=== PATIENT | female | born 1995 | race Caucasian/White ===

== ENCOUNTER 2024-09-19 07:37 | Inpatient (IN) ==
[2024-09-19] MEDS ORDERED: OXYTOCIN 30 UNITS/NSS 30 UNITS/500 ML BAG IV PRN (08:15)
[2024-09-19] MEDS ORDERED: CALCIUM CARBONATE 500 MG CHEWABLE TAB PO PRN (08:15)
[2024-09-19] MEDS ORDERED: LIDOCAINE 1% LOCAL 20 ML VIAL INFIL PRN (08:15)
[2024-09-19 08:46] LABS: Hematocrit (blood only) 37.6 % (37.0-47.0); Hemoglobin 13.1 g/dl (12.0-16.0); Mean Corpuscular Hemoglobin 30.3 pg (25.0-34.0); Mean Corpuscular Hgb Conc 34.8 g/dL (32.0-36.0); Mean Platelet Volume 10.7 fL (9.4-12.4); Platelet Count 230 K/uL (130-400); RDW Coefficient of Variation 13.8 % (11.5-14.5); RDW Standard Deviation 43.8 fL (36.4-46.3); Red Blood Count 4.32 M/uL (4.20-5.40); White Blood Count 6.49 K/ul (4.8-10.8)
[2024-09-19] MEDS: LACTATED RINGER'S 1,000 ML IV PRN (09:07)
[2024-09-19] MEDS: OXYTOCIN 30 UNITS/NSS 30 UNITS/500 ML BAG IV PRN (09:20)
--- NOTE | 2024-09-19 09:28 | History & Physical Report ---
Date of Service September 19, 2024 Assessment & Plan (1) Encounter for induction of labor: (2) Obesity affecting , antepartum: (3) Need for rhogam due to Rh negative mother: (4) Marginal insertion of umbilical cord: (5) ELEN II (cervical intraepithelial neoplasia II): Plan Lluvia is a 28 y/o female currently at 39/3 WGA with an HENRY 09/23/24 as determined by Ultrasound who is here for induction due tp LGA. Her was complicated by obesity, Rh neg, and marginal cord insertion. Category 1 tracing; moderate FHT variability. - Induction of labor via henderson balloon followed by Pitocin as needed for progression of labor - Consider amniotomy to assist with progression of labor - Consult anesthesiology for epidural per pt request - Monitor labor progress Admission and Anticipated Discharge Date Admission Date: September 19, 2024 History of Present Illness Primary Care Provider: NO PCP Lluvia is a 28 y/o female currently at 39/3 WGA with an HENRY 09/23/24 as determined by Ultrasound who is here for induction due to protocol for BMI >40 pre-. Her was complicated by obesity, Rh neg, and marginal cord insertion. no contractions; regular movement; no fluid loss; no bloody show Had regular appointments with OB. Transferred to practice 12+ weeks. OB Labs: Blood Type O Negative 07/09/24 Antibody Screen NEGATIVE 07/09/24 Hgb 10.1 g/dl (12.0-16.0) L 07/09/24 Hct 30.1 % (37.0-47.0) L 07/09/24 Treponema pallidum Ab Negative (Negative) 07/09/24 Glucose 1 Hr 50 gm 84 mg/dl (70-130) 07/09/24 OB Optional Labs: No Data to Display Labs Reviewed: Initial OB Labs 02/01/24 Blood Type & RH O negative Antibody Screen negative HCT/HGB 38.5/13.1 Platelets 224 Hep C IgG 13yrs+ Old non-reactive Pap Test 12/2023 HGSIL, ELEN II Chlamydia not detected Gonorrhea not detected Rubella immune RPR non-reactive Urine Culture/Screen <30,000 mixed breann HBsAg non-reactive HIV non-reactive MCV 88.3 Ultrasound HgbA1c 5.4 Allergies Allergy/AdvReac Type Severity Reaction Status Date / Time No Known Allergies Allergy Verified 09/18/24 10:19 Home Medications Medication Instructions Recorded Confirmed Type ascorbic acid (vitamin C) 1 tab PO 1XD 03/14/24 09/19/24 History calcium carbonate [Calcium 500] 1 tab PO 1XD 03/14/24 09/19/24 History magnesium 400 mg PO 1XD 03/14/24 09/19/24 History 21-iron fu-folic acid 1 tab PO 1XD 03/14/24 09/19/24 History [ Complete] Unisom (doxylamine) 0.5 tabs PO QPM 09/19/24 09/19/24 History Patient History Medical History (Updated 09/19/24 @ 09:34 by Carrie Shelley DO) HGSIL (high grade squamous 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 High risk HPV infection Surgical History S/P wisdom tooth extraction History of colposcopy S/P loop electrosurgical excision procedure Family History Grandfather (Maternal) Heart disease Hypertension Grandmother (Maternal) Hypertension Mother Hypertension Family/Other Pancreatic cancer uncle Denies family history of Ovarian cancer Breast cancer Colorectal cancer Social History Smoking Status: Never smoker Second Hand Exposure: No; Do You Dip or Chew Tobacco: No; Hx Alcohol Use: No Hx Substance Use: No Preferred Language: Tristanian Communication Ability: Effective Technical Support Representative Required: No Beliefs That Will Affect Care: None marital status: marital status details: Evreardo Riggins (29) [phone] Current Living Situation: Spouse Current Living Situation Comment: - Everardo; norah - Najma current occupational status: employed 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 Denies breast pain. Denies dysuria. Denies headache or changes in vision. Physical Exam Physical Exam: General: Alert, oriented. No acute distress. Cardiac: Regular rate and rhythm, no murmurs/rubs/gallops. Respiratory: Clear to auscultation bilaterally a/p, no wheezes/rales/rhonchi. No increased work of breathing. Symmetrical chest rise. No respiratory distress. Abdomen: Gravid;Position: Vertex Pelvic: Dilation 2 cm; Effacement 50%; Station -[address] Fish Lower Extremities: No lower extremity edema or swelling. No deep calf pain. Alexander's negative bilaterally Results & Data Vital Signs (Past 12 Hours) Vital Signs Temp Pulse Resp BP O2 Del Method 09/19/24 07:59 36.6 C 85 18 130/75 Room Air 09/19/24 07:51 85 130/75 Code Status & VTE Plan VTE Prophylaxis Plan VTE Prophylaxis will be ordered: No Monitoring External Monitor External FHT and external uterine monitors used; Supervising Physician Co-Signing Physician Notes Resident Physician Supervision Note: I interviewed and examined the patient. Discussed with Dr. Shelley and agree with findings and plan as documented in the note. Any exceptions or clarifications are listed here: 28 yo G1 at 39 3/7wga presents for IOL for BMI >40. PNI as above. VSS wnl. 2/50/-2, EFW 7-8, fetus cat 1 and irreg ctx. 35cc henderson bulb placed, tolerated well. Will start pit. GBS neg, epidural prn Documented By: Tomasa Fish MD Resident Activity Tracking Resident Involvement: Resident Care Provided Care Provided: Adult Hospital Medicine
--- NOTE | 2024-09-19 13:27 | Anesthesiology Consultation ---
Date of Service September 19, 2024 Assessment & Plan (1) Encounter for pre-operative examination: Chart Review Chart Review: Acceptable Risk for Labor Epidural History Height/Weight Height: 5 ft 6 in Weight: 121.109 kg Allergies Allergy/AdvReac Type Severity Reaction Status Date / Time No Known Allergies Allergy Verified 09/18/24 10:19 Medications Home Medications Medication Instructions Recorded Confirmed Last Taken ascorbic acid (vitamin C) 1 tab PO 1XD 03/14/24 09/19/24 09/18/24 18:00 calcium carbonate [Calcium 500] 1 tab PO 1XD 03/14/24 09/19/24 09/18/24 18:00 magnesium 400 mg PO 1XD 03/14/24 09/19/24 09/18/24 18:00 21-iron fu-folic acid 1 tab PO 1XD 03/14/24 09/19/24 09/18/24 18:00 [ Complete] Unisom (doxylamine) 0.5 tabs PO QPM 09/19/24 09/19/24 09/18/24 21:00 Active Medications Generic Name Dose Route Start Last Admin Trade Name Freq PRN Reason Stop Dose Admin Lactated Ringer's 1,000 mls @ 125 mls/hr 09/19/24 08:15 09/19/24 12:50 Lr IV 09/20/24 08:14 999 mls/hr .Q8H PRN Infusion L&D Protocol Protocol Oxytocin 30 units in 500 mls @ 12 mls/hr 09/19/24 08:15 09/19/24 12:05 Pitocin 30 Units/Nss IV 09/21/24 08:14 0.72 units/hr .Q24H PRN 12 mls/hr Labor Induction/Augmentation Titration Protocol 0.72 UNITS/HR Past Medical History Medical History (Updated 09/19/24 @ 13:27 by Boy Mo MD) Obesity affecting , antepartum HGSIL (high grade squamous 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 High risk HPV infection Past Family History Family History Grandfather (Maternal) Heart disease Hypertension Grandmother (Maternal) Hypertension Mother Hypertension Family/Other Pancreatic cancer uncle Denies family history of Ovarian cancer Breast cancer Colorectal cancer Past Surgical History Surgical History S/P wisdom tooth extraction History of colposcopy S/P loop electrosurgical excision procedure Social History Smoking Status: Never smoker Do You Dip or Chew Tobacco: No Hx Alcohol Use: No Hx Substance Use: No substance use type: does not use Physical Exam Vital Signs Last Vital Signs Temp 36.8 C 09/19/24 11:15 Pulse 78 09/19/24 13:24 Resp 16 09/19/24 11:30 BP 114/62 09/19/24 11:26 Pulse Ox 99 09/19/24 13:24 O2 Del Method Room Air 09/19/24 07:59 Testing Laboratory Results 09/19/24 08:28 Blood Type O Negative 09/19/24 08:28 Antibody Screen NEGATIVE 09/19/24 08:28
[2024-09-19] MEDS ORDERED: ROPIVACAINE 0.5% PF 5 MG/ML 20 ML VIAL EPI PRN (13:56)
[2024-09-19] MEDS ORDERED: SODIUM CHLORIDE 0.9% PF INJ 10 ML VIAL EPI PRN (13:56)
[2024-09-19] MEDS ORDERED: LIDOCAINE 2% MPF LOCAL 5 ML VIAL EPI PRN (13:56)
[2024-09-19] MEDS ORDERED: ONDANSETRON INJ 2 MG/ML 2 ML VIAL IV PRN (13:56)
[2024-09-19] MEDS ORDERED: BUPIVACAINE 0.25% PF 30 ML VIAL EPI PRN (13:56)
[2024-09-19] MEDS ORDERED: NALOXONE HCL 1 MG in SODIUM CHLORIDE 0.9% 1,000 ML IV PRN (13:56)
[2024-09-19] MEDS ORDERED: NALOXONE HCL 0.4 MG/1 ML VIAL/CARP IV PRN (13:56)
[2024-09-19] MEDS ORDERED: fentaNYL citrate PF 100 MCG/2 ML VIAL EPI PRN (13:56)
[2024-09-19] MEDS ORDERED: ePHEDrine sulfate 50 MG/ML AMP IV PRN (13:56)
[2024-09-19] MEDS: BUPIVACAINE 0.25% PF 30 ML VIAL ONE (14:00)
[2024-09-19] MEDS: fentANYL 2 MCG/ML BUPIVacaine 0.125%-NSS 100ML BAG ONE (14:00)
[2024-09-19] MEDS: LIDOCAINE 2%/EPINEPHRINE 1:200,000 20 ML PF ONE (14:01)
[2024-09-19] MEDS: LIDOCAINE 2%/EPINEPHRINE 1:200,000 20 ML PF EPI STA (14:08)
[2024-09-19] MEDS: BUPIVACAINE 0.25% PF 30 ML VIAL EPI STA (14:08)
[2024-09-19] MEDS: SODIUM CHLORIDE 0.9% PF INJ 10 ML VIAL EPI STA (14:08)
[2024-09-19] MEDS: fentaNYL citrate PF 100 MCG/2 ML VIAL EPI STA (14:08)
[2024-09-19] MEDS: fentaNYL citrate PF 100 MCG/2 ML VIAL ONE (14:12)
--- NOTE | 2024-09-19 14:28 | Labor Progress Brief Note ---
Date of Service September 19, 2024 Subjective bulb out, comfortable w/ epidural Assessment & Plan (1) Encounter for induction of labor: (2) Marginal insertion of umbilical cord: Plan 28 yo G1 at 39 3/7 wga admitted for IOL VSS Fetus cat 1 Labor - pit at 14, now s/p arom. Continue induction GBS neg epidural in place Admission and Anticipated Discharge Date Admission Date: September 19, 2024 Physical Exam Genitourinary: Manual OB Exam: + cervical dilation 4 cm, + cervical effacement 70%, + station -2 and + amniotic fluid (arom clear) OB Exam Monitor Tracing: + external FHT monitor used, + external uterine monitor used (q4) and + category I (125/mod/+accel/decel) Results & Data Vital Signs (Past 12 Hours) Vital Signs Temp Pulse Resp BP Pulse Ox O2 Del Method 09/19/24 14:22 88 133/71 09/19/24 14:19 86 99 09/19/24 14:17 80 137/63 09/19/24 14:14 92 H 99 09/19/24 14:12 90 126/58 L 09/19/24 14:09 99 H 99 09/19/24 14:07 101 H 132/61 09/19/24 14:04 101 H 99 09/19/24 14:02 95 H 120/65 09/19/24 14:00 83 118/66 09/19/24 13:59 84 99 09/19/24 13:58 88 115/56 L 09/19/24 13:56 115 H 111/53 L 09/19/24 13:54 99 09/19/24 13:54 101 H 09/19/24 13:54 93 H 117/59 L 09/19/24 13:52 103 H 118/56 L 09/19/24 13:50 122 H 149/67 H 09/19/24 13:49 116 H 98 09/19/24 13:48 90 136/75 09/19/24 13:46 81 137/76 09/19/24 13:44 100 09/19/24 13:44 81 09/19/24 13:44 77 134/75 09/19/24 13:40 82 147/91 H 09/19/24 13:39 81 100 09/19/24 13:38 82 139/79 09/19/24 13:34 102 H 100 09/19/24 13:29 82 99 09/19/24 13:26 73 137/79 09/19/24 13:24 78 99 09/19/24 13:19 88 100 09/19/24 13:14 75 100 09/19/24 13:09 87 100 09/19/24 11:30 16 09/19/24 11:30 16 09/19/24 11:26 71 114/62 09/19/24 11:15 16 09/19/24 11:15 98.2 F 16 09/19/24 10:32 92 H 125/70 09/19/24 09:27 90 127/84 09/19/24 07:59 97.9 F 85 18 130/75 Room Air 09/19/24 07:51 85 130/75 Coding Level of Care Code None Diagnoses Encounter for induction of labor Z34.90 Marginal insertion of umbilical cord
[2024-09-19] MEDS ORDERED: Nursing to Pharmacy Communication SCH (17:15)
--- NOTE | 2024-09-19 17:17 | Labor Progress Brief Note ---
Date of Service September 19, 2024 Subjective cmofortable w/ epidural Assessment & Plan (1) Encounter for induction of labor: (2) Marginal insertion of umbilical cord: Plan 28 yo G1 at 39 3/7 wga admitted for IOL VSS Fetus cat 1 Labor - pit at 18, progress noted w/ descent. Will increase pit max to 24 [address] in place Admission and Anticipated Discharge Date Admission Date: September 19, 2024 Physical Exam Genitourinary: Manual OB Exam: + cervical dilation 4 cm, + cervical effacement 70% and + station -1 OB Exam Monitor Tracing: + external FHT monitor used, + external uterine monitor used (q3-5) and + category I (125/mod/+accel/decel) Results & Data Vital Signs (Past 12 Hours) Vital Signs Temp Pulse Resp BP Pulse Ox O2 Del Method 09/19/24 17:09 89 98 09/19/24 17:04 78 99 09/19/24 16:59 93 H 99 09/19/24 16:54 77 99 09/19/24 16:49 82 98 09/19/24 16:44 73 99 09/19/24 16:39 74 100 09/19/24 16:34 82 99 09/19/24 16:29 76 99 09/19/24 16:24 75 99 09/19/24 16:19 72 99 09/19/24 16:14 77 98 09/19/24 16:09 83 98 09/19/24 16:04 85 98 09/19/24 16:00 18 09/19/24 16:00 18 09/19/24 15:59 78 98 09/19/24 15:54 91 H 98 09/19/24 15:49 85 99 09/19/24 15:44 83 99 09/19/24 15:39 83 99 09/19/24 15:38 78 149/90 H 09/19/24 15:34 83 98 09/19/24 15:29 76 98 09/19/24 15:24 78 99 09/19/24 15:23 78 122/72 09/19/24 15:19 81 99 09/19/24 15:14 85 100 09/19/24 15:09 100 09/19/24 15:09 90 09/19/24 15:09 82 136/70 09/19/24 15:04 81 100 09/19/24 14:59 98 H 100 09/19/24 14:54 99 09/19/24 14:54 81 09/19/24 14:54 74 116/70 09/19/24 14:49 81 99 09/19/24 14:44 110 H 99 09/19/24 14:39 80 98 09/19/24 14:38 89 118/72 09/19/24 14:34 87 98 09/19/24 14:30 18 09/19/24 14:30 18 09/19/24 14:29 76 99 09/19/24 14:24 80 98 09/19/24 14:22 88 133/71 09/19/24 14:19 86 99 09/19/24 14:17 80 137/63 09/19/24 14:14 92 H 99 09/19/24 14:12 90 126/58 L 09/19/24 14:09 99 H 99 09/19/24 14:07 101 H 132/61 09/19/24 14:04 101 H 99 09/19/24 14:02 95 H 120/65 09/19/24 14:00 83 118/66 09/19/24 13:59 84 99 09/19/24 13:58 88 115/56 L 09/19/24 13:56 115 H 111/53 L 09/19/24 13:54 99 09/19/24 13:54 101 H 09/19/24 13:54 93 H 117/59 L 09/19/24 13:52 103 H 118/56 L 09/19/24 13:50 122 H 149/67 H 09/19/24 13:49 116 H 98 09/19/24 13:48 90 136/75 09/19/24 13:46 81 137/76 09/19/24 13:44 100 09/19/24 13:44 81 09/19/24 13:44 77 134/75 09/19/24 13:40 82 147/91 H 09/19/24 13:39 81 100 09/19/24 13:38 82 139/79 09/19/24 13:34 102 H 100 09/19/24 13:29 82 99 09/19/24 13:26 73 137/79 09/19/24 13:24 78 99 09/19/24 13:19 88 100 09/19/24 13:14 75 100 09/19/24 13:09 87 100 09/19/24 11:30 16 09/19/24 11:30 16 09/19/24 11:26 71 114/62 09/19/24 11:15 16 09/19/24 11:15 98.2 F 16 09/19/24 10:32 92 H 125/70 09/19/24 09:27 90 127/84 09/19/24 07:59 97.9 F 85 18 130/75 Room Air 09/19/24 07:51 85 130/75 Coding Level of Care Code None Diagnoses Encounter for induction of labor Z34.90 Marginal insertion of umbilical cord
[2024-09-19] MEDS: ePHEDrine sulfate 50 MG/ML AMP ONE (20:14)
[2024-09-19] MEDS: SODIUM CHLORIDE 0.9% PF INJ 10 ML VIAL ONE (20:15)
[2024-09-19] MEDS: fentANYL 2 MCG/ML BUPIVacaine 0.125%-NSS 100ML BAG EPI PRN (20:59)
--- NOTE | 2024-09-19 21:36 | Labor Progress Brief Note ---
Date of Service September 19, 2024 Subjective RN just checked, requesting internals Assessment & Plan (1) Encounter for induction of labor: (2) Marginal insertion of umbilical cord: Plan 28 yo G1 at 39 3/7 wga admitted for IOL VSS Fetus cat 1 Labor - pit at 22, progress noted. FSE/IUPC placed so can trace in different positions better. I can feel a little swelling of anterior cervix but progress is also noted so will try to reposition to see if will help. Discussed this w/ pt, aware GBS neg epidural in place Admission and Anticipated Discharge Date Admission Date: September 19, 2024 Physical Exam Genitourinary: Manual OB Exam: + cervical dilation 5 cm, + cervical effacement 70% and + station -1 and 0 OB Exam Monitor Tracing: + scalp electrode used, + intra-uterine pressure catheter used (placed q3-4) and + category I (135/mod/+accel/occ early decel) Results & Data Vital Signs (Past 12 Hours) Vital Signs Temp Pulse Resp BP Pulse Ox 09/19/24 21:29 86 98 09/19/24 21:24 83 100 09/19/24 21:19 78 100 09/19/24 21:14 77 98 09/19/24 21:09 79 99 09/19/24 21:04 89 100 09/19/24 20:59 85 100 09/19/24 20:54 84 99 09/19/24 20:49 84 99 09/19/24 20:44 84 98 09/19/24 20:40 85 141/64 H 09/19/24 20:39 83 99 09/19/24 20:34 81 99 09/19/24 20:29 88 98 09/19/24 20:24 93 H 99 09/19/24 20:19 90 99 09/19/24 20:14 92 H 98 09/19/24 20:09 90 99 09/19/24 20:04 104 H 99 09/19/24 20:00 18 09/19/24 20:00 18 09/19/24 19:59 92 H 100 09/19/24 19:54 92 H 99 09/19/24 19:49 98 H 98 09/19/24 19:44 110 H 98 09/19/24 19:40 99 H 118/71 09/19/24 19:39 97 H 97 09/19/24 19:34 87 97 09/19/24 19:30 18 09/19/24 19:30 98.2 F 18 09/19/24 19:29 94 H 98 09/19/24 19:24 90 98 09/19/24 19:19 100 H 99 09/19/24 19:14 103 H 98 09/19/24 19:09 94 H 99 09/19/24 19:04 90 98 09/19/24 19:00 20 09/19/24 19:00 20 09/19/24 18:59 95 H 97 09/19/24 18:54 81 99 09/19/24 18:49 87 98 09/19/24 18:44 89 98 09/19/24 18:41 90 122/76 09/19/24 18:39 77 98 09/19/24 18:34 85 98 09/19/24 18:30 16 09/19/24 18:30 16 09/19/24 18:29 77 97 09/19/24 18:24 75 97 09/19/24 18:19 79 97 09/19/24 18:16 80 120/57 L 09/19/24 18:14 79 99 09/19/24 18:09 95 H 99 09/19/24 18:04 79 99 09/19/24 18:00 18 09/19/24 18:00 18 09/19/24 17:59 79 99 09/19/24 17:54 79 99 09/19/24 17:49 82 98 09/19/24 17:44 86 98 09/19/24 17:39 83 99 09/19/24 17:34 92 H 99 09/19/24 17:30 18 09/19/24 17:30 18 09/19/24 17:29 92 H 98 09/19/24 17:24 86 99 09/19/24 17:19 83 98 09/19/24 17:14 81 99 09/19/24 17:09 89 98 09/19/24 17:04 78 99 09/19/24 17:00 18 09/19/24 17:00 98.6 F 18 09/19/24 16:59 93 H 99 09/19/24 16:54 77 99 09/19/24 16:49 82 98 09/19/24 16:44 73 99 09/19/24 16:39 74 100 09/19/24 16:34 82 99 09/19/24 16:29 76 99 09/19/24 16:24 75 99 09/19/24 16:19 72 99 09/19/24 16:14 77 98 09/19/24 16:09 83 98 09/19/24 16:04 85 98 09/19/24 16:00 18 09/19/24 16:00 18 09/19/24 15:59 78 98 09/19/24 15:54 91 H 98 09/19/24 15:49 85 99 09/19/24 15:44 83 99 09/19/24 15:39 83 99 09/19/24 15:38 78 149/90 H 09/19/24 15:34 83 98 09/19/24 15:29 76 98 09/19/24 15:24 78 99 09/19/24 15:23 78 122/72 09/19/24 15:19 81 99 09/19/24 15:14 85 100 09/19/24 15:09 100 09/19/24 15:09 90 09/19/24 15:09 82 136/70 09/19/24 15:04 81 100 09/19/24 14:59 98 H 100 09/19/24 14:54 99 09/19/24 14:54 81 09/19/24 14:54 74 116/70 09/19/24 14:49 81 99 09/19/24 14:44 110 H 99 09/19/24 14:39 80 98 09/19/24 14:38 89 118/72 09/19/24 14:34 87 98 09/19/24 14:30 18 09/19/24 14:30 18 09/19/24 14:29 76 99 09/19/24 14:24 80 98 09/19/24 14:22 88 133/71 09/19/24 14:19 86 99 09/19/24 14:17 80 137/63 09/19/24 14:14 92 H 99 09/19/24 14:12 90 126/58 L 09/19/24 14:09 99 H 99 09/19/24 14:07 101 H 132/61 09/19/24 14:04 101 H 99 09/19/24 14:02 95 H 120/65 09/19/24 14:00 83 118/66 09/19/24 13:59 84 99 09/19/24 13:58 88 115/56 L 09/19/24 13:56 115 H 111/53 L 09/19/24 13:54 99 09/19/24 13:54 101 H 09/19/24 13:54 93 H 117/59 L 09/19/24 13:52 103 H 118/56 L 09/19/24 13:50 122 H 149/67 H 09/19/24 13:49 116 H 98 09/19/24 13:48 90 136/75 09/19/24 13:46 81 137/76 09/19/24 13:44 100 09/19/24 13:44 81 09/19/24 13:44 77 134/75 09/19/24 13:40 82 147/91 H 09/19/24 13:39 81 100 09/19/24 13:38 82 139/79 09/19/24 13:34 102 H 100 09/19/24 13:29 82 99 09/19/24 13:26 73 137/79 09/19/24 13:24 78 99 09/19/24 13:19 88 100 09/19/24 13:14 75 100 09/19/24 13:09 87 100 09/19/24 11:30 16 09/19/24 11:30 16 09/19/24 11:26 71 114/62 09/19/24 11:15 16 09/19/24 11:15 98.2 F 16 09/19/24 10:32 92 H 125/70 Coding Level of Care Code None Diagnoses Encounter for induction of labor Z34.90 Marginal insertion of umbilical cord
[2024-09-19] MEDS: diphenhydrAMINE 50 MG/ML VIAL IV ONE (21:39)
[2024-09-19] MEDS ORDERED: LIDOCAINE 2%/EPINEPHRINE 1:200,000 20 ML PF ONE (22:41)
[2024-09-19] MEDS ORDERED: ROPIVACAINE 0.5% 5 MG/ML 30 ML VIAL ONE (22:41)
--- NOTE | 2024-09-19 22:50 | Anesthesia Procedure Note ---
Date of Service September 19, 2024 Anesthesia Epidural Re-Dose Vital Signs Temp Pulse Resp BP Pulse Ox O2 Del Method 37.6 C H 80 18 130/64 99 Room Air 09/19/24 21:30 09/19/24 22:45 09/19/24 22:30 09/19/24 22:45 09/19/24 22:44 09/19/24 07:59 Notes Pain Intensity: 2 Dilatation (cm): 5.5 Effacement (%): 80 Called by nursing to evaluate epidural as the patient is having increased pain. The epidural was re-dosed with the following medications (all medications via epidural route) after negative aspiration of the epidural catheter for CSF/HEME 1.2% lidocaine and 0.2% ropivacaine 7 ml After Epidural Re-Dose Mental Status: alert / awake / arousable Pain: improving with treatment Airway Patency, RR, SpO2: stable & adequate BP & HR: stable & adequate
[2024-09-20] MEDS: diphenhydrAMINE 50 MG/ML VIAL ONE (02:16)
--- NOTE | 2024-09-20 03:26 | Delivery Summary ---
Vaginal Delivery Summary Date of Service September 20, 2024 Vaginal Delivery Summary and 2nd Degree LAC PREOPERATIVE DIAGNOSIS: 1. Single intrauterine at 39 4/7 2. Marginal cord insertion POSTOPERATIVE DIAGNOSIS: 1. Single intrauterine at 39 4/7 2. Marginal cord insertion 3. Delivered PROCEDURE: 1. Normal spontaneous vaginal delivery. SURGEON: Tomasa Fish MD ANESTHESIA: Epidural. QUANTITATIVE BLOOD LOSS: 59 mL FLUIDS: Continuous LR. URINE OUTPUT: None. COMPLICATIONS: None. CONDITION: Stable. INDICATIONS: 28 yo G1 at 39 4/7 wga presents for IOL for BMI > 40. Induction was started with henderson bulb and pitocin. Henderson bulb expulsed and she received an epidural. She underwent arom and continued to progress. FSE and IUPC were placed for more accurate monitoring. She progressed to complete and desired to push FINDINGS: A viable male infant, weight pending with Apgars of 8 and 9 at 1 and 5 minutes respectively. SPECIMEN: Cord blood OPERATIVE REPORT: The patient progressed to 10 cm, 100% effaced and +2 station, pushed over intact perineum with anesthesia to deliver a viable male infant, weight and Apgars as above. Head of delivered in SOLIS position. No nuchal cord was present. Body and shoulders were delivered without difficulty. was delivered to maternal abdomen and nursing staff. Delayed cord clamping was performed for 60 seconds. Cord was clamped and cut. Cord blood was obtained. Placenta delivered spontaneously intact with 3-vessel cord. IV oxytocin and fundal massage were given for excellent hemostasis. Vagina, cervix, perineum, and placenta were inspected. A second degree laceration was repaired using 3-0 vicryl in the usual fashion. There was excellent hemostasis. Sponge and needle counts correct x2. No sponges were left behind. Mother and stable in immediate period. [facility] [place] Charge Vaginal Delivery Codes: 04200 global code for the antepartum, delivery, and post- Delivery Type Details: and 2nd Degree LAC
[2024-09-20] MEDS ORDERED: ACETAMINOPHEN 325 MG TAB PO PRN (04:00)
[2024-09-20] MEDS ORDERED: OXYTOCIN 30 UNITS/NSS 30 UNITS/500 ML BAG IV PRN (04:00)
[2024-09-20] MEDS ORDERED: bisacodyL 10 MG SUPP PR PRN (04:00)
[2024-09-20] MEDS ORDERED: HYDROCORTISONE ACETATE 25 MG SUPP PR PRN (04:00)
[2024-09-20] MEDS: IBUPROFEN 600 MG TAB PO PRN (04:18)
[2024-09-20] MEDS: BENZOCAINE 20% SPRY 85 APPLN/85 GM CAN EXT PRN (04:19)
[2024-09-20] MEDS: DIPHTHER/TETAN/PERTUS Vaccine (Tdap, Adol/Adult) 0.5mL IM ONE (06:00)
[2024-09-20] MEDS: DOCUSATE SODIUM 100 MG CAP PO SCH (08:42)
[2024-09-20] MEDS: PRENATAL VITAMIN 1 TAB PO SCH (08:42)
[2024-09-20] MEDS: ACETAMINOPHEN 325 MG TAB PO PRN (20:22)
--- NOTE | 2024-09-21 05:48 | Obstetrical Progress Note ---
Date of Service September 21, 2024 Assessment & Plan (1) Encounter for induction of labor: (2) Obesity affecting , antepartum: (3) Need for rhogam due to Rh negative mother: (4) Marginal insertion of umbilical cord: (5) ELEN II (cervical intraepithelial neoplasia II): Plan Pt is 28 yo post- day 1 s/p at 39w2d. complicated by obesity, Rh negative, and marginal cord insertion. - Encourage breast feeding and ambulation - Pain control with tylenol and ibuprofen - Discharge today Admission and Anticipated Discharge Date Admission Date: September 19, 2024 Supervising Physician Co-Signing Physician Notes Resident Physician Supervision Note: I was present with Dr. Shelley during the history and exam. I discussed the case with the resident and agree with the findings and plan as documented in the note. Any exceptions or clarifications are listed here: [None] Documented By: Anjum Stringer MD, FACOG Subjective Pt is 28 yo post- day 1 s/p at 39w2d. complicated by obesity, Rh negative, and marginal cord insertion. Ambulation:In and out of room Voiding:voiding normally Passing gas: yes BM: no Diet tolerance:regular diet Lochia:bloody, no clots Feeding type: breast Current pain level: 0-3 /10 improved with ibuprofen Resting comfortably this morning in NAD. Denies MINER, CP, SOB, N/V/D, LE pain/swelling. Review of Systems Review of Systems: As per HPI Physical Exam Constitutional: WD/WN, vitals as above Respiratory: normal respiratory effort, lungs clear to auscultation Cardiovascular: RRR, no murmur, no edema Gastrointestinal (Abdomen): normal bowel sounds, soft, nontender, no hepatosplenomegaly Uterine fundus firm and at 1 cm below level of umbilicus Neurologic: PERRL, EOMI, accommodation nl, no face palsy, no dysarthria Moving all 4 extremities on command Psychiatric: A+Ox3, euthymic affect Results & Data Vital Signs (Past 12 Hours) Vital Signs Temp Pulse Resp BP Pulse Ox O2 Del Method 09/20/24 22:57 36.5 C 85 18 128/84 98 Room Air 09/20/24 19:00 36.3 C L 87 18 127/84 97 Room Air Resident Activity Tracking Resident Involvement: Resident Care Provided Care Provided: OB Delivery
[2024-09-21 09:29] VITALS: BP 121/77; PULSE 82; RESP 17; TEMP 98.1; O2SAT 100
[2024-09-21] MEDS ORDERED: bisacodyL 5 MG TABEC PO SCH (20:00)
== END 2024-09-21 12:45 | disposition home or self-care (01) | DRG 807 ==
LOC: 4S1 07:37 → 4E2 09-20 06:15
DX: O43.103 Malformation of placenta, unspecified, third trimester; O34.42 Maternal care for other abnormalities of cervix, second trimester; Z37.0 Single live birth; O70.1 Second degree perineal laceration during delivery; Z3A.39 39 weeks gestation of pregnancy; Z67.41 Type O blood, Rh negative; O99.214 Obesity complicating childbirth; O26.893 Other specified pregnancy related conditions, third trimester; O76 Abnormality in fetal heart rate and rhythm complicating labor and delivery

== ENCOUNTER 2024-10-15 05:30 | Inpatient (IN) ==
[2024-10-15 06:21] LABS: Basophils # (auto) 0.01 K/uL (0.00-0.20); Basophils % (auto) 0.1 %; Eosinophils # (auto) 0.09 K/uL (0.00-0.50); Eosinophils % (auto) 1.3 %; Hematocrit (blood only) 37.3 % (37.0-47.0); Hemoglobin 12.6 g/dl (12.0-16.0); Immature Granulocytes # (auto) 0.07 K/uL (0.01-0.20); Lymphocytes # (auto) 0.93 K/uL (1.20-3.40); Lymphocytes % (auto) 13.2 %; Mean Corpuscular Hemoglobin 29.2 pg (25.0-34.0); Mean Corpuscular Hgb Conc 33.8 g/dL (32.0-36.0); Mean Corpuscular Volume 86.5 fL (80.0-100.0); Mean Platelet Volume 9.1 fL (9.4-12.4); Monocytes # (auto) 0.51 K/uL (0.11-0.59); Monocytes % (auto) 7.3 %; Neutrophils # (auto) 5.42 K/uL (1.40-6.50); Neutrophils % (auto) 77.1 %; Platelet Count 236 K/uL (130-400); RDW Coefficient of Variation 13.1 % (11.5-14.5); RDW Standard Deviation 41.1 fL (36.4-46.3); Red Blood Count 4.31 M/uL (4.20-5.40); White Blood Count 7.03 K/ul (4.8-10.8)
[2024-10-15 06:39] LABS: Albumin Globulin Ratio 0.9 (0.9-2); Albumin Level 3.6 gm/dl (3.4-5.0); BUN Creatinine Ratio 18.5 (10-20); Bilirubin,Total 0.4 mg/dl (0.2-1.0); Calcium 8.4 mg/dl (8.6-10.3); Creatinine Clr Calc Pharmacy 195.2 ml/min; Globulin 3.8 gm/dl (2.5-4.0); Potassium 3.9 mmol/L (3.5-5.1); Total Protein 7.4 gm/dl (6.0-8.3)
--- NOTE | 2024-10-15 06:48 | Emergency Department Note ---
Impression & Plan Pulmonary embolism, Bilateral pleural effusion, D-dimer, elevated ED Provider Note NAME: NATALYA FORD AGE: 28 SEX: F : 1995 ARRIVES VIA: Walk-In INFORMANT: Patient ED PROVIDER(S): El Lux DO CHIEF COMPLAINT: chest and back pain HPI: Patient is a 28-year-old female 3 to 3-1/2 weeks who presents to the ER as a G1, P1 for upper trapezius pain which radiates down the lower thoracic region on the right and anteriorly to the upper right chest wall. This been present for the past 3 days. It is worse with twisting, turning, and bending. Significantly worse when she lays on it. It is also worse when she goes to sit up. She denies any shortness of breath but notes it is painful to breathe. Denies any belly pain, nausea, vomiting or diarrhea. No dysuria, urgency, or frequency. No other exacerbating or remitting factors. No fevers. ADDITIONAL HISTORY OBTAINED: Per HPI Chronic Medical/Social Conditions Affecting Care: Per HPI PAST MEDICAL HISTORY:See Below PAST SURGICAL HISTORY:See Below FAMILY HISTORY:See Below SOCIAL HISTORY:See Below HOME MEDICATIONS:See Below ALLERGIES:See Below VITALS:See Below PHYSICAL EXAMINATION: GENERAL: Sitting up in bed, alert, well appearing, well nourished, no distress, non-toxic, moderate amount of pain with sitting up and laying down EYE EXAM: normal conjunctiva. PERRL and EOM's grossly intact. OROPHARYNX: no exudate, no erythema, lips, buccal mucosa, and tongue normal and mucous membranes are moist NECK: supple, no nuchal rigidity, no adenopathy, non-tender LUNGS: Clear to auscultation. Normal chest wall mechanics HEART: no murmurs, S1 normal and S2 normal ABDOMEN: abdomen soft, non-tender, normo-active bowel sounds, no masses, no rebound or guarding. BACK: Back is symmetrical on inspection and there is no deformity, no midline tenderness, no CVA tenderness. Tenderness over the right trapezius tracking down through the right thoracic paraspinal region. UPPER EXTREMITIES: upper extremities are grossly normal. LOWER EXTREMITIES: No pitting edema. NEURO EXAM: Normal sensorium, cranial nerves II-XII grossly intact, normal speech, no gross weakness of arms, no gross weakness of legs. MEDICAL DECISION MAKING: Patient is a 28-year-old female status post delivery vaginally 3 weeks ago who presents to the ER for shortness of breath and chest pain. IV was established and blood work was obtained. Labs showed no significant leukocytosis or anemia. D-dimer was elevated at 25,000. BMP along with LFTs bilirubin was unremarkable. Initial troponin was negative. UA was clean. CT initially questioned whether these filling defects were truly PEs. Ultrasound was ordered. With the pleural effusions and the shortness of breath and questionable PEs I did discuss the case with the hospitalist for further evaluation management and treatment. Ultrasound was pending upon admission. Current plan was to hold and wait for the ultrasound. Terese discussed the case with Dr. Arroyo and it was felt that these were consistent with PEs and at this time patient was started on heparin drip and bolus which I did order. Patient was admitted for further workup. Consults/Care Managements Discussions: Per [facility] Triage Nursing notes reviewed. Limited review of prior medical records performed Vital Signs: reviewed and remarkable for no significant abnormalities Differential diagnosis: Cardiac ischemia, aortic dissection, pulmonary embolism, pneumothorax, pneumonia, pericarditis, myocarditis, esophageal rupture, GERD, cholecystitis, pancreatitis, musculoskeletal, as well as other pathologies. ER treatment provided: See below Diagnostics interpreted by me include EKG and cardiac monitoring as listed below: -Cardiac Monitoring: An order was placed for continuous cardiac monitoring. The monitor shows a rate of 85 with sinus rhythm. -ECG: Sinus rhythm rate of 87 Normal axis No PVCs QTc 413 -Laboratory studies:Interpreted by me as stated above in MDM and shown below. Imaging studies: Xrays: As interpreted by me: Portable AP upright 1 view of the chest shows subtle opacity right lower lobe CTs show: CT angio of the chest as described above in [facility] Procedures:none Critical Care: I have personally spent 31 minutes of critical care time in the direct management of this patient. This includes bedside care, interpretation of diagnostic studies, and testing, discussion with consultants, patient, and family members, and other required patient management activities. This 31 minutes is in excess of all separately billable procedures. Past Med/Surg History Problem List (Updated 10/15/24 @ 11:55 by El Lux DO) D-dimer, elevated (Acute) Bilateral pleural effusion (Acute) Pulmonary embolism (Acute) Pleural effusion Right-sided chest pain pulmonary embolism Pulmonary embolism and infarction Post-dural puncture headache Encounter for induction of labor ELEN II (cervical intraepithelial neoplasia II) Marginal insertion of umbilical cord Need for rhogam due to Rh negative mother Encounter for anatomic survey Supervision of normal first Medical History Encounter for pre-operative examination Obesity affecting , antepartum HGSIL (high grade squamous 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 High risk HPV infection Surgical History S/P wisdom tooth extraction History of colposcopy S/P loop electrosurgical excision procedure Family History Grandfather (Maternal) Heart disease Hypertension Grandmother (Maternal) Hypertension Mother Hypertension Family/Other Pancreatic cancer uncle Denies family history of Ovarian cancer Breast cancer Colorectal cancer Social History Smoking Status: Never smoker Second Hand Exposure: No; Do You Dip or Chew Tobacco: No; Hx Alcohol Use: No Hx Substance Use: No Preferred Language: Greek Communication Ability: Effective Sales Account Coordinator Required: No Beliefs That Will Affect Care: None marital status: marital status details: Everardo Ford (29) [phone] Current Living Situation: Spouse Current Living Situation Comment: - Everardo; dog - Najma current occupational status: employed 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 Feels Safe at Home: Yes Assistive Devices: None Allergies Allergies Allergy/AdvReac Type Severity Reaction Status Date / Time No Known Allergies Allergy Verified 10/15/24 08:40 Home Meds Home Medications Medication Instructions Recorded Confirmed ascorbic acid (vitamin C) 500 mg 500 mg PO DAILY 09/26/24 10/15/24 tablet (Vitamin C) calcium carbonate 500 mg PO Q OTHER DAY 09/26/24 10/15/24 magnesium oxide 400 mg PO HS 09/26/24 10/15/24 vit no.95-ferrous 1 tab PO DAILY 09/26/24 10/15/24 fumarate 28 mg-folic acid 800 mcg tablet () Previous Rx's Medication Instructions Recorded apixaban 5 mg (74 tabs) tablets in 5 mg PO Q12H #74 ea 10/15/24 a dose pack (Eliquis) Results & Data (ED) Vital Signs Vital Signs - 24 hr 10/15/24 05:34 10/15/24 05:59 10/15/24 06:00 Temperature 37 C Temperature Source Temporal Artery Scan Pulse Rate 92 H 99 H Pulse Rate [Apical] 84 Respiratory Rate 18 17 Respiratory Effort / Characteristics Non-Labored Non-Labored Spontaneous Respiratory Depth Normal Respiratory Pattern Regular Blood Pressure 126/81 Blood Pressure [Left Arm] 116/63 Blood Pressure Mean 96 Blood Pressure Mean [Left Arm] 80 Blood Pressure Position [Left Arm] Lying Pulse Oximetry 99 99 Oxygen Delivery Method Room Air Room Air Sepsis Recent Fever Within 48 Hours No Sepsis New/Unexplained Change in Mental Status No Sepsis Action Taken by Nursing No Action Required 10/15/24 06:28 10/15/24 07:06 10/15/24 08:43 Temperature Temperature Source Pulse Rate 86 Pulse Rate [Apical] 83 82 Respiratory Rate 18 18 18 Respiratory Effort / Characteristics Non-Labored Non-Labored Respiratory Depth Normal Normal Respiratory Pattern Blood Pressure Blood Pressure [Left Arm] 134/80 132/77 Blood Pressure Mean Blood Pressure Mean [Left Arm] 98 95 Blood Pressure Position [Left Arm] Pulse Oximetry 97 98 97 Oxygen Delivery Method Room Air Room Air Room Air Sepsis Recent Fever Within 48 Hours Sepsis New/Unexplained Change in Mental Status Sepsis Action Taken by Nursing 10/15/24 09:28 10/15/24 10:40 Temperature Temperature Source Pulse Rate Pulse Rate [Apical] 82 81 Respiratory Rate 18 21 Respiratory Effort / Characteristics Non-Labored Respiratory Depth Normal Respiratory Pattern Blood Pressure Blood Pressure [Left Arm] 136/80 123/77 Blood Pressure Mean Blood Pressure Mean [Left Arm] 98 92 Blood Pressure Position [Left Arm] Pulse Oximetry 98 97 Oxygen Delivery Method Room Air Sepsis Recent Fever Within 48 Hours Sepsis New/Unexplained Change in Mental Status Sepsis Action Taken by Nursing Laboratory Data 10/15/24 06:00 10/15/24 06:00 Lab Results 10/15/24 10/15/24 Range/Units 06:00 07:30 WBC 7.03 (4.8-10.8) K/ul RBC 4.31 (4.20-5.40) M/uL Hgb 12.6 (12.0-16.0) g/dl Hct 37.3 (37.0-47.0) % MCV 86.5 (80.0-100.0) fL MCH 29.2 (25.0-34.0) pg MCHC 33.8 (32.0-36.0) g/dL RDW Std Deviation 41.1 (36.4-46.3) fL RDW Coeff of Michael 13.1 (11.5-14.5) % Plt Count 236 (130-400) K/uL MPV 9.1 L (9.4-12.4) fL Immature Gran % (Auto) 1.0 % Neut % (Auto) 77.1 % Lymph % (Auto) 13.2 % Charles % (Auto) 7.3 % Eos % (Auto) 1.3 % Baso % (Auto) 0.1 % Neut # (Auto) 5.42 (1.40-6.50) K/uL Lymph # (Auto) 0.93 L (1.20-3.40) K/uL Charles # (Auto) 0.51 (0.11-0.59) K/uL Eos # (Auto) 0.09 (0.00-0.50) K/uL Baso # (Auto) 0.01 (0.00-0.20) K/uL Immature Gran # (Auto) 0.07 (0.01-0.20) K/uL PT 10.2 (9.0-12.0) Seconds INR 0.9 (0.9-1.1) D-Dimer 67813 H* (0-500) ug/L FEU Sodium 138 (136-145) mmol/L Potassium 3.9 (3.5-5.1) mmol/L Chloride 102 (98-107) mmol/L Carbon Dioxide 29 (21-32) mmol/L Anion Gap 7 (3-11) BUN 10 (6-23) mg/dl Creatinine 0.54 L (0.6-1.2) mg/dl Est Cr Clr Drug Dosing 195.2 ml/min eGFR 129.33 BUN/Creatinine Ratio 18.5 (10-20) Glucose 108 H (70-99(Fasting)) mg/dl Calcium 8.4 L (8.6-10.3) mg/dl Total Bilirubin 0.4 (0.2-1.0) mg/dl AST 19 (13-39) U/L ALT 14 (7-52) U/L Alkaline Phosphatase 69 (34-104) U/L Troponin I High Sens 3.8 (0-14) pg/ml Total Protein 7.4 (6.0-8.3) gm/dl Albumin 3.6 (3.4-5.0) gm/dl Globulin 3.8 (2.5-4.0) gm/dl Albumin/Globulin Ratio 0.9 (0.9-2) Urine Color Yellow Urine Appearance Clear (Clear) Urine pH 6.5 (4.5-7.5) Ur Specific [place] 1.007 (1.000-1.030) Urine Protein 1+ H (Negative) Urine Glucose (UA) Negative (Negative) Urine Ketones Negative (Negative) Urine Blood Negative (Negative) Urine Nitrite Negative (Negative) Urine Bilirubin Negative (Negative) Urine Urobilinogen Negative (Negative) Ur Leukocyte Esterase 2+ H (Negative) Urine WBC (Auto) 0-5 (0-5) /hpf Urine RBC (Auto) 0-2 (0-2) /hpf U Hyaline Cast (Auto) 0-2 (0-2) /lpf U Epithel Cells (Auto) 0-2 (0-2) /hpf Urine Bacteria (Auto) None Seen (None Seen) Administered Medications Discontinued Medications Acetaminophen (Acetaminophen 325 Mg Tab) 650 mg PO NOW STA Stop: 10/15/24 06:46 Last Admin: 10/15/24 07:04 Dose: 650 mg Documented By: TRACI Sodium Chloride (Nss) 1,000 mls @ 999 mls/hr IV .Q1H1M ONE Stop: 10/15/24 07:45 Last Infusion: 10/15/24 09:28 Dose: Infused Documented By: Admin: 10/15/24 07:04 Dose: 999 mls/hr Documented By: TRACI Ioversol (Optiray 320 125ml) 112 ml IV ONCE ONE Stop: 10/15/24 07:18 Last Admin: 10/15/24 07:17 Dose: 112 ml Documented By: PAUL Imaging Data Radiologist's Impression: Chest X-Ray 10/15/24 05:41 EXAM: XR chest 1V portable CLINICAL HISTORY: Dyspnea. TECHNIQUE: An X-ray image of the chest is obtained in AP projection. COMPARISON: CT angio chest dated 09/26/2024 was reviewed. No prior chest x-rays. FINDINGS: Pulmonary Parenchyma: Bilateral congestive changes. Faint area of haziness/opacification in the right lung lower zone. Can be projectional. Needs clinical correlation and follow-up. Otherwise, no evidence of consolidation or collapse. Obscured costophrenic angles, likely due to overlying soft tissue shadows. Heart and Mediastinum: Heart size and shape are normal. No mediastinal widening or masses. No hilar or mediastinal lymphadenopathy. Bony Thorax: Bony thorax appears intact without fractures or deformities. Soft Tissues: Soft tissues overlying the chest wall are unremarkable. IMPRESSION: 1. Faint area of opacification in the right lung lower medial zone. Can be projectional. Needs clinical correlation and follow-up. 2. Bilateral mild congestive changes (unchanged). Electronically signed by Tc Squires 10-15-2024 06:55 AM Chest CTA 10/15/24 07:00 EXAM: CT angio chest PE protocol CLINICAL HISTORY: PE +dd right-sided chest pain. TECHNIQUE: Contiguous 3.[address] angiographic images of the chest were acquired with the administration of intravenous contrast. Coronal and sagittal reconstructions were obtained. 112 ml opti 320 was administered for post-contrast images. One of these 3D techniques was utilized: Maximum Intensity Pixel (MIP), 3D Reconstructed Images, Volume Rendered Images, Surface Shaded Rendering. One of the following dose reduction techniques were utilized for this exam: Automated exposure control, adjustment of the mA and/or kV according to patient size, and use of iterative reconstruction. COMPARISON: Prior X-ray dated 10/15/2024 for comparison. FINDINGS: Aorta: The thoracic aorta is normal in caliber. No evidence of aneurysm, dissection, or significant atherosclerotic changes. Aortic arch and descending thoracic aorta are unremarkable. Pulmonary Arteries: Hypodense attenuation in few subsegmental branches of pulmonary artery in posterior segment of right lower lobe likely artefactual due to delayed phase acquisition vs small thrombi. Rest of pulmonary arteries are normal in size and opacification. Superior Vena Cava (SVC) and Inferior Vena Cava (IVC): Normal opacification and caliber. No evidence of thrombus or obstruction. Coronary Arteries: Coronary arteries are well-opacified. No significant stenosis or atherosclerotic changes. Mediastinum: No mediastinal mass or lymphadenopathy. Normal appearance of the thymus. Heart: Normal size and morphology of the heart. No pericardial effusion. Lungs: Atelectatic changes and ground glassing in posterior basal segments of bilateral lower lobes. Mild bilateral pleural effusion. Bones: No fractures or lytic/sclerotic lesions of the visualized bony structures. Normal alignment and bone density. Soft Tissues: Mild skin thickening in bilateral breasts. Few enlarged lymph nodes in bilateral axilla largest 2.3 x 2.2 cm on the left. Normal appearance of rest of visualized soft tissues. IMPRESSION: 1. Hypodense attenuation in few subsegmental branches of pulmonary artery in posterior segment of right lower lobe likely artefactual due to delayed phase acquisition however the possibility of small thrombi Cannot be entirely excluded, clinical correlation and follow-up is advised. 2. Atelectatic changes and ground glassing in posterior basal segments of bilateral lower lobes, stable. 3. Mild bilateral pleural effusion, new finding. 4. Mild skin thickening in bilateral breasts, new finding. 5. Few enlarged lymph nodes in bilateral axilla largest 2.3 x 2.2 cm on the left, could be reactive, new finding. Electronically signed by Tc Squires 10-15-2024 08:26 AM Venous Doppler Study 10/15/24 08:32 BILATERAL LOWER EXTREMITY VENOUS DOPPLER CLINICAL HISTORY: ? dvt w/ PE'S COMPARISON STUDY: No previous studies for comparison. TECHNIQUE: Sonography of the deep venous system of the bilateral lower extremities was performed. Compression and augmentation were evaluated. FINDINGS: The bilateral common femoral, superficial femoral and popliteal veins were compressible. Augmentation was normal. Flow was shown within the deep calf vessels. IMPRESSION: No evidence of deep venous thrombus within the bilateral lower extremities. ACT 112: Negative or not required by law. Electronically signed by: Sergei Arroyo M.D. 10/15/2024 10:33 AM Discharge Plan Visit Data Chief Complaint: Illness Stated Complaint: possible blood clot in lung ED Provider: El Lux Discharge Problem: Pulmonary embolism, Bilateral pleural effusion, D-dimer, elevated Patient Disposition: Admitted As Inpatient Condition: Fair Forms Stand Alone Forms: My [employer] Prescriptions Prescriptions: New Eliquis 5 mg (74 tabs) tablets,dose pack 5 mg PO Q12H Qty: 74 0RF No Action calcium carbonate [Calcium 500] 500 mg calcium (1,250 mg) Tablet 500 mg PO Q OTHER DAY ascorbic acid (vitamin C) [Vitamin C] 500 mg Tablet 500 mg PO DAILY PNV cmb#95-ferrous fumarate-FA [] 28 mg iron- 800 mcg Tablet 1 tab PO DAILY magnesium oxide 400 mg magnesium Tablet 400 mg PO HS Referrals Referrals: PCP,NO [Physician] - Discharge Problem: Pulmonary embolism Qualifiers: Pulmonary embolism type: unspecified Chronicity: acute Acute cor pulmonale presence: unspecified Qualified Code(s): I26.99 - Other pulmonary embolism without acute cor pulmonale
--- NOTE | 2024-10-15 06:56 | XRay Report ---
EXAM: XR chest 1V portable CLINICAL HISTORY: Dyspnea. TECHNIQUE: An X-ray image of the chest is obtained in AP projection. COMPARISON: CT angio chest dated 09/26/2024 was reviewed. No prior chest x-rays. FINDINGS: Pulmonary Parenchyma: Bilateral congestive changes. Faint area of haziness/opacification in the right lung lower zone. Can be projectional. Needs clinical correlation and follow-up. Otherwise, no evidence of consolidation or collapse. Obscured costophrenic angles, likely due to overlying soft tissue shadows. Heart and Mediastinum: Heart size and shape are normal. No mediastinal widening or masses. No hilar or mediastinal lymphadenopathy. Bony Thorax: Bony thorax appears intact without fractures or deformities. Soft Tissues: Soft tissues overlying the chest wall are unremarkable. IMPRESSION: 1. Faint area of opacification in the right lung lower medial zone. Can be projectional. Needs clinical correlation and follow-up. 2. Bilateral mild congestive changes (unchanged). Electronically signed by Tc Squires 10-15-2024 06:55 AM
[2024-10-15 07:00] LABS: D Dimer 25700 ug/L FEU (0-500)
[2024-10-15] MEDS: ACETAMINOPHEN 325 MG TAB PO STA (07:04)
[2024-10-15] MEDS: SODIUM CHLORIDE 0.9% 1,000 ML IV ONE (07:04)
[2024-10-15] MEDS: OPTIRAY 320 125ml IV ONE (07:17)
[2024-10-15 08:08] LABS: Appearance Urine Clear (Clear); Bacteria Urine Automated None Seen (None Seen); Bilirubin Urine Negative (Negative); Blood Urine Negative (Negative); Cast Urine Automated 0-2 /lpf (0-2); Color Urine Yellow; Epithelial Cell Urine Auto 0-2 /hpf (0-2); Glucose Urine UA Negative (Negative); Ketones Urine Negative (Negative); Leukocyte Esterase Urine 2+ (Negative); Nitrite Urine Negative (Negative); Protein Urine 1+ (Negative); RBC Urine Automated 0-2 /hpf (0-2); Specific Gravity Urine 1.007 (1.000-1.030); Urobilinogen Urine Negative (Negative); WBC Urine Automated 0-5 /hpf (0-5); pH Urine 6.5 (4.5-7.5)
[2024-10-15 08:17] LABS: Troponin I High Sensitivity 3.8 pg/ml (0-14)
--- NOTE | 2024-10-15 08:27 | CT Scan Report ---
EXAM: CT angio chest PE protocol CLINICAL HISTORY: PE +dd right-sided chest pain. TECHNIQUE: Contiguous 3.[address] angiographic images of the chest were acquired with the administration of intravenous contrast. Coronal and sagittal reconstructions were obtained. 112 ml opti 320 was administered for post-contrast images. One of these 3D techniques was utilized: Maximum Intensity Pixel (MIP), 3D Reconstructed Images, Volume Rendered Images, Surface Shaded Rendering. One of the following dose reduction techniques were utilized for this exam: Automated exposure control, adjustment of the mA and/or kV according to patient size, and use of iterative reconstruction. COMPARISON: Prior X-ray dated 10/15/2024 for comparison. FINDINGS: Aorta: The thoracic aorta is normal in caliber. No evidence of aneurysm, dissection, or significant atherosclerotic changes. Aortic arch and descending thoracic aorta are unremarkable. Pulmonary Arteries: Hypodense attenuation in few subsegmental branches of pulmonary artery in posterior segment of right lower lobe likely artefactual due to delayed phase acquisition vs small thrombi. Rest of pulmonary arteries are normal in size and opacification. Superior Vena Cava (SVC) and Inferior Vena Cava (IVC): Normal opacification and caliber. No evidence of thrombus or obstruction. Coronary Arteries: Coronary arteries are well-opacified. No significant stenosis or atherosclerotic changes. Mediastinum: No mediastinal mass or lymphadenopathy. Normal appearance of the thymus. Heart: Normal size and morphology of the heart. No pericardial effusion. Lungs: Atelectatic changes and ground glassing in posterior basal segments of bilateral lower lobes. Mild bilateral pleural effusion. Bones: No fractures or lytic/sclerotic lesions of the visualized bony structures. Normal alignment and bone density. Soft Tissues: Mild skin thickening in bilateral breasts. Few enlarged lymph nodes in bilateral axilla largest 2.3 x 2.2 cm on the left. Normal appearance of rest of visualized soft tissues. IMPRESSION: 1. Hypodense attenuation in few subsegmental branches of pulmonary artery in posterior segment of right lower lobe likely artefactual due to delayed phase acquisition however the possibility of small thrombi Cannot be entirely excluded, clinical correlation and follow-up is advised. 2. Atelectatic changes and ground glassing in posterior basal segments of bilateral lower lobes, stable. 3. Mild bilateral pleural effusion, new finding. 4. Mild skin thickening in bilateral breasts, new finding. 5. Few enlarged lymph nodes in bilateral axilla largest 2.3 x 2.2 cm on the left, could be reactive, new finding. Electronically signed by Tc Squires 10-15-2024 08:26 AM
--- NOTE | 2024-10-15 09:00 | Electrocardiogram Report ---
Test Reason : Blood Pressure : */* mmHG Vent. Rate : 87 BPM Atrial Rate : 87 BPM P-R Int : 150 ms QRS Dur : 86 ms QT Int : 344 ms P-R-T Axes : 10 74 35 degrees QTcB Int : 413 ms Normal sinus rhythm Normal ECG No previous ECGs available Confirmed by Allegra Mohamud (Coy) on 10/15/2024 9:00:20 AM Referred By: REFERRED SELF Confirmed By: Allegra Mohamud
[2024-10-15] MEDS ORDERED: KETOROLAC TROMETHAMINE 15 MG/ML VIAL IV PRN (09:55)
--- NOTE | 2024-10-15 10:15 | History & Physical Report ---
Date of Service October 15, 2024 Assessment & Plan (1) Pulmonary embolism and infarction: (2) pulmonary embolism: (3) Right-sided chest pain: (4) Pleural effusion: Plan This is a 28-year-old female who is otherwise healthy and recently had a spontaneous vaginal delivery 3 and half weeks ago to a healthy baby boy who presents to ED after experiencing right-sided chest pain and shortness of breath for the past 1.5 days. #Post right sided pulmonary embolism with infarct admit to [facility] discussed radiology findings with Dr. Arroyo as initial read was consist with artifact, but he confirms that RLL subsegmental arteries consistent with PE and likely pulmonary infarct associated with right pleural effusion will obtain hypercoagulable work up given significant FH and early post , 3.5 weeks Initiate IV heparin, pt is not breast feeding and likely a candidate for eliquis IV toradol and oral tylenol for pain relief monitor vaginal bleeding, though pt reports mostly now minimal encourage incentive spirometry add heat/lidocaine patch obtain echo venous duplex: negative recommend hematology referral at discharge #Post state pt reports feeling well denies any PPD/PPA Feels hormonal given recent dx, but has a lot of support DVT ppx: Initiating IV heparin Dispo: admit to [facility], likely be able to d/c in 1-2 days on DOAC FULL CODE PCP: ALMA ROSA Avelar out of [place] Pt was seen and examined in collaboration with Dr. Givens, please see addendum I spent a total of 61 minutes coordinating, documenting and providing care for this patient excluding time spent in the performance of separately billed services or time spent by another provider/QHP. History of Present Illness Chief Complaint: SOB and Right sided back pain x 1.5 days. Primary Care Provider: ALMA ROSA Parsons This is a 28-year-old female who is otherwise healthy and recently had a spontaneous vaginal delivery 3 and half weeks ago to a healthy baby boy who presents to ED after experiencing right-sided chest pain and shortness of breath for the past 1.5 days. Her aunt Sarah is at bedside who also helps elicit history. Of note she had an uncomplicated vaginal delivery. In the initial phase she had a severe headache which was treated with a blood patch in the ED and the symptoms resolved. Up until that point she had been doing well until Tuesday evening when she developed right-sided scapular and mid back pain that was worse with lying flat and taking a deep breath. Symptoms were improved with leaning forward and resting. She did complain of shortness of breath when lying flat as well as dyspnea on exertion. She states that she is back to her prepregnancy weight. She denies any significant lower extremity swelling. She does report approximately 1 week ago having left-sided calf burning that resolved on its own. She also has some associated dizziness with ambulation. She denies any fever, chills, sweats, lightheadedness, presyncope, cough, hemoptysis, nausea, vomiting, abdominal pain, change in her bowel or urinary habits. She reports vaginal bleeding has significantly slowed down. She denies any personal history of clotting disorder but states that her sister had a blood clot in her late 30s as well as her aunts has blood clots. They are pretty certain that her mother has also had blood clots. No known family history of clotting disorder that they are aware of. She never had symptoms like this in the past. In ED patient remained hemodynamically stable. Her CBC, CMP, troponin and urinalysis were unremarkable. Initial CT chest revealed concern for hypoattenuation in the right lower lobe concerning for artifact versus a small filling defect as well as bilateral pleural effusions. She was referred for admission. Allergies Allergy/AdvReac Type Severity Reaction Status Date / Time No Known Allergies Allergy Verified 10/15/24 08:40 Home Medications Medication Instructions Recorded Confirmed Type ascorbic acid (vitamin C) 500 mg 500 mg PO DAILY 09/26/24 10/15/24 History tablet (Vitamin C) calcium carbonate 500 mg PO Q OTHER DAY 09/26/24 10/15/24 History magnesium oxide 400 mg PO HS 09/26/24 10/15/24 History vit no.95-ferrous 1 tab PO DAILY 09/26/24 10/15/24 History fumarate 28 mg-folic acid 800 mcg tablet () apixaban 5 mg (74 tabs) tablets in 5 mg PO Q12H #74 ea 10/15/24 Rx a dose pack (Eliquis) Past Med/Surg History Problem List (Updated 10/15/24 @ 11:55 by El Lux DO) D-dimer, elevated (Acute) Bilateral pleural effusion (Acute) Pulmonary embolism (Acute) Pleural effusion Right-sided chest pain pulmonary embolism Pulmonary embolism and infarction Post-dural puncture headache Encounter for induction of labor ELEN II (cervical intraepithelial neoplasia II) Marginal insertion of umbilical cord Need for rhogam due to Rh negative mother Encounter for anatomic survey Supervision of normal first Medical History Encounter for pre-operative examination Obesity affecting , antepartum HGSIL (high grade squamous 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 High risk HPV infection Surgical History S/P wisdom tooth extraction History of colposcopy S/P loop electrosurgical excision procedure Family History Grandfather (Maternal) Heart disease Hypertension Grandmother (Maternal) Hypertension Mother Hypertension Family/Other Pancreatic cancer uncle Denies family history of Ovarian cancer Breast cancer Colorectal cancer Social History Smoking Status: Never smoker Second Hand Exposure: No; Do You Dip or Chew Tobacco: No; Hx Alcohol Use: No Hx Substance Use: No Preferred Language: Tajik Communication Ability: Effective [employer] Associate Required: No Beliefs That Will Affect Care: None marital status: marital status details: Everardo Riggins (29) [phone] Current Living Situation: Spouse Current Living Situation Comment: - Everardo; dog - Najma current occupational status: employed 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 Normal insp/exp effort, no accessory muscle use Cardiovascular: RRR, no murmur, no edema Vessels: no JVD or carotid bruit Chest: normal inspection of chest Abdomen: normal bowel sounds, soft, nontender, no hepatosplenomegaly Musculoskeletal: no cyanosis or clubbing, extremities motor strength 5/5 Skin: no rashes, warm and dry normal turgor Neurologic: PERRL, EOMI, accommodation nl, no face palsy, no dysarthria CN's II-XI intact bilaterally and moves all extremities Psychiatric: A+Ox3, euthymic affect Lymphatic: no cervical or axillary lymphadenopathy : deferred Results & Data Results & Data Vital Signs (Past 12 Hours) Vital Signs Temp Pulse Pulse Resp BP BP Pulse Ox 10/15/24 09:28 82 18 136/80 98 10/15/24 08:43 82 18 132/77 97 10/15/24 07:06 83 18 134/80 98 10/15/24 06:28 86 18 97 10/15/24 06:00 84 17 116/63 99 10/15/24 05:59 99 H 10/15/24 05:34 37 C 92 H 18 126/81 99 O2 Del Method 10/15/24 09:28 Room Air 10/15/24 08:43 Room Air 10/15/24 07:06 Room Air 10/15/24 06:28 Room Air 10/15/24 06:00 Room Air 10/15/24 05:59 10/15/24 05:34 Room Air Laboratory Results I have independently reviewed and interpreted patient's admitting labs including CBC, CMP,ddimer, and troponin. Diagnostic Findings Chest X-Ray 10/15/24 05:41 EXAM: XR chest 1V portable CLINICAL HISTORY: Dyspnea. TECHNIQUE: An X-ray image of the chest is obtained in AP projection. COMPARISON: CT angio chest dated 09/26/2024 was reviewed. No prior chest x-rays. FINDINGS: Pulmonary Parenchyma: Bilateral congestive changes. Faint area of haziness/opacification in the right lung lower zone. Can be projectional. Needs clinical correlation and follow-up. Otherwise, no evidence of consolidation or collapse. Obscured costophrenic angles, likely due to overlying soft tissue shadows. Heart and Mediastinum: Heart size and shape are normal. No mediastinal widening or masses. No hilar or mediastinal lymphadenopathy. Bony Thorax: Bony thorax appears intact without fractures or deformities. Soft Tissues: Soft tissues overlying the chest wall are unremarkable. IMPRESSION: 1. Faint area of opacification in the right lung lower medial zone. Can be projectional. Needs clinical correlation and follow-up. 2. Bilateral mild congestive changes (unchanged). Electronically signed by Tc Squires 10-15-2024 06:55 AM Chest CTA 10/15/24 07:00 EXAM: CT angio chest PE protocol CLINICAL HISTORY: PE +dd right-sided chest pain. TECHNIQUE: Contiguous 3.[address] angiographic images of the chest were acquired with the administration of intravenous contrast. Coronal and sagittal reconstructions were obtained. 112 ml opti 320 was administered for post-contrast images. One of these 3D techniques was utilized: Maximum Intensity Pixel (MIP), 3D Reconstructed Images, Volume Rendered Images, Surface Shaded Rendering. One of the following dose reduction techniques were utilized for this exam: Automated exposure control, adjustment of the mA and/or kV according to patient size, and use of iterative reconstruction. COMPARISON: Prior X-ray dated 10/15/2024 for comparison. FINDINGS: Aorta: The thoracic aorta is normal in caliber. No evidence of aneurysm, dissection, or significant atherosclerotic changes. Aortic arch and descending thoracic aorta are unremarkable. Pulmonary Arteries: Hypodense attenuation in few subsegmental branches of pulmonary artery in posterior segment of right lower lobe likely artefactual due to delayed phase acquisition vs small thrombi. Rest of pulmonary arteries are normal in size and opacification. Superior Vena Cava (SVC) and Inferior Vena Cava (IVC): Normal opacification and caliber. No evidence of thrombus or obstruction. Coronary Arteries: Coronary arteries are well-opacified. No significant stenosis or atherosclerotic changes. Mediastinum: No mediastinal mass or lymphadenopathy. Normal appearance of the thymus. Heart: Normal size and morphology of the heart. No pericardial effusion. Lungs: Atelectatic changes and ground glassing in posterior basal segments of bilateral lower lobes. Mild bilateral pleural effusion. Bones: No fractures or lytic/sclerotic lesions of the visualized bony structures. Normal alignment and bone density. Soft Tissues: Mild skin thickening in bilateral breasts. Few enlarged lymph nodes in bilateral axilla largest 2.3 x 2.2 cm on the left. Normal appearance of rest of visualized soft tissues. IMPRESSION: 1. Hypodense attenuation in few subsegmental branches of pulmonary artery in posterior segment of right lower lobe likely artefactual due to delayed phase acquisition however the possibility of small thrombi Cannot be entirely excluded, clinical correlation and follow-up is advised. 2. Atelectatic changes and ground glassing in posterior basal segments of bilateral lower lobes, stable. 3. Mild bilateral pleural effusion, new finding. 4. Mild skin thickening in bilateral breasts, new finding. 5. Few enlarged lymph nodes in bilateral axilla largest 2.3 x 2.2 cm on the left, could be reactive, new finding. Electronically signed by Tc Squires 10-15-2024 08:26 AM Medications Administered Medication List Discontinued Medications Acetaminophen (Acetaminophen 325 Mg Tab) 650 mg PO NOW STA Stop: 10/15/24 06:46 Last Admin: 10/15/24 07:04 Dose: 650 mg Documented By: TRACI Sodium Chloride (Nss) 1,000 mls @ 999 mls/hr IV .Q1H1M ONE Stop: 10/15/24 07:45 Last Infusion: 10/15/24 09:28 Dose: Infused Documented By: MMVik Admin: 10/15/24 07:04 Dose: 999 mls/hr Documented By: TRACI Ioversol (Optiray 320 125ml) 112 ml IV ONCE ONE Stop: 10/15/24 07:18 Last Admin: 10/15/24 07:17 Dose: 112 ml Documented By: PAUL ECG Additional Comments: I have independently reviewed and interpreted patient's admitting EKG which revealed: 87bpm, nsr, no st or t wave change, [id number] for PE COVID-19 Results Results COVID-19 Adm Lab Results: RBC 4.31 M/uL (4.20-5.40) 10/15/24 WBC 7.03 K/ul (4.8-10.8) 10/15/24 Hgb 12.6 g/dl (12.0-16.0) 10/15/24 Hct 37.3 % (37.0-47.0) 10/15/24 Plt Count 236 K/uL (130-400) 10/15/24 Neutrophils (%) (Auto) 77.1 % 10/15/24 Lymphocytes (%) (Auto) 13.2 % 10/15/24 Monocytes # (Auto) 0.51 K/uL (0.11-0.59) 10/15/24 Eosinophils # (Auto) 0.09 K/uL (0.00-0.50) 10/15/24 Immature Granulocyte % (Auto) 1.0 % 10/15/24 Neutrophils # (Auto) 5.42 K/uL (1.40-6.50) 10/15/24 Lymphocytes # (Auto) 0.93 K/uL (1.20-3.40) L 10/15/24 Monocytes # (Auto) 0.51 K/uL (0.11-0.59) 10/15/24 Eosinophils # (Auto) 0.09 K/uL (0.00-0.50) 10/15/24 Basophils # (Auto) 0.01 K/uL (0.00-0.20) 10/15/24 Immature Granulocyte # (Auto) 0.07 K/uL (0.01-0.20) 5 Na 138 mmol/L (136-145) 10/15/24 K 3.9 mmol/L (3.5-5.1) 10/15/24 Cl 102 mmol/L (98-107) 10/15/24 CO2 29 mmol/L (21-32) 10/15/24 Anion Gap 7 (3-11) 10/15/24 BUN 10 mg/dl (6-23) 10/15/24 Creatinine 0.54 mg/dl (0.6-1.2) L 10/15/24 BUN/Creatinine Ratio 18.5 (10-20) 10/15/24 Glucose Level 108 mg/dl (70-99(Fasting)) H 10/15/24 Ca 8.4 mg/dl (8.6-10.3) L 10/15/24 Total Bilirubin 0.4 mg/dl (0.2-1.0) 10/15/24 AST/SGOT 19 U/L (13-39) 10/15/24 ALT/SGPT 14 U/L (7-52) 10/15/24 Alkaline Phosphatase 69 U/L (34-104) 10/15/24 Total Protein 7.4 gm/dl (6.0-8.3) 10/15/24 Albumin 3.6 gm/dl (3.4-5.0) 10/15/24 Globulin 3.8 gm/dl (2.5-4.0) 10/15/24 Albumin/Globulin Ratio 0.9 (0.9-2) 10/15/24 D-Dimer 90528 ug/L FEU (0-500) H* 10/15/24 INR 0.9 (0.9-1.1) 10/15/24 Chest X-Ray 10/15/24 Code Status & VTE Plan Code Status FULL CODE VTE Prophylaxis Plan VTE Prophylaxis will be ordered: No Supervising Physician Co-Signing Physician Notes Patient is a 28-year-old female but otherwise no significant past medical history presents with history of right-sided chest pain associated with shortness of breath, increased with movement and pleuritic in nature. Symptoms gradually worsened over 2-day duration. Right-sided chest pain worsens while lying on right side or lying flat. She reports having calf pain 2 weeks ago which resolved. She denies any recent travel. CTA showed findings suggestive of PE. She denies any history of prior blood clots. Admits to have maternal family history of blood clots. Please review HPI for complete details of presentation. I personally reviewed blood work and imaging studies. Hypercoagulable workup currently pending. Initial troponin negative. TSH pending. Noted elevated D-dimer. Venous Doppler showed no DVT. CTA showed right lower lobe pulmonary segmental and subsegmental PE. Also noted right lower lobe opacity suggestive of pulmonary infarct with associated small pleural effusion. Incidentally also noted few enlarged lymph nodes in bilateral axilla. Physical Exam: Vitals signs as noted above General Appearance:Obese, no apparent distress Head: normocephalic, Atraumatic Eyes: normal inspection, EOMI Neck: supple, Trachea midline Respiratory/Chest: Decreased breath sounds, CTA, No accessory muscle use Cardiovascular: S1, S2, No murmur Abdomen/GI:Soft, Non tender, Bowel sounds present Extremities/Musculoskeletal:normal inspection, no edema Neurologic/Psych:AAOX3, grossly no focal neurological deficits Skin: normal color, warm Acute PE Suspected pulmonary infarct Axillary lymphadenopathy likely reactive Hypercoagulable workup pending Echo pending Agree with starting IV heparin Pain control as needed Incentive spirometry Saturating well on room air Advised to follow-up with PCP/hematology follow-up on hypercoagulable workup and axillary lymphadenopathy Monitor for any bleeding issues. I personally interviewed and examined the patient at bedside. I have reviewed the advanced practitioner's documentation on the date of service referred in note and agree with plan. Patient's care is coordinated with Terese Gordillo. Please refer to the documentation above for details of patient's presentation and for discussion of other issues. I spent a total [id number] coordinating, documenting, and providing care for this patient excluding time spent in the performance of separately billed services or time spent by another provider/QHP.
--- NOTE | 2024-10-15 10:35 | Ultrasound Report ---
BILATERAL LOWER EXTREMITY VENOUS DOPPLER CLINICAL HISTORY: ? dvt w/ PE'S COMPARISON STUDY: No previous studies for comparison. TECHNIQUE: Sonography of the deep venous system of the bilateral lower extremities was performed. Co mpression and augmentation were evaluated. FINDINGS: The bilateral common femoral, superficial femoral and popliteal veins were compressible. A ugmentation was normal. Flow was shown within the deep calf vessels. IMPRESSION: No evidence of deep venous thrombus within the bilateral lower extremities. ACT 112: Negative or not required by law. Electronically signed by: Sergei Arroyo M.D. 10/15/2024 10:33 AM
[2024-10-15 10:43] LABS: INR 0.9 (0.9-1.1); Prothrombin Time 10.2 Seconds (9.0-12.0)
[2024-10-15 12:17] LABS: Troponin I High Sensitivity < 2.3 pg/ml (0-14)
[2024-10-15] MEDS: HEPARIN 25000 UNIT/500 ML D5W 25,000 UNITS/500 ML BAG IV SCH (12:23)
[2024-10-15] MEDS: HEPARIN SOD (PORCINE) 1000 UNIT/ML IV ONE (12:23)
[2024-10-15 12:27] LABS: Thyroid Stimulating Hormone 1.628 uIu/ml (0.300-4.500)
[2024-10-15] MEDS ORDERED: FAMOTIDINE 20 MG TAB PO PRN (13:11)
[2024-10-15] MEDS ORDERED: ACETAMINOPHEN 325 MG TAB PO PRN (13:11)
[2024-10-15] MEDS ORDERED: ONDANSETRON INJ 2 MG/ML 2 ML VIAL IV PRN (13:11)
[2024-10-15] MEDS ORDERED: POLYETHYLENE (MIRALAX) 17 GM PACK PO PRN (13:11)
[2024-10-15] MEDS: LIDOCAINE 5% 1 PATCH TD SCH ×2 (13:42→19:40)
[2024-10-15] MEDS: Heparin IV Adult Wt-Based Standard w/ INITIAL Bolus Protocol IV STA (16:54)
[2024-10-15] MEDS ORDERED: MELATONIN 3 MG TAB PO PRN (21:00)
[2024-10-15] MEDS: MAGNESIUM OXIDE 400 MG TAB PO SCH (21:35)
[2024-10-16 01:29] LABS: ANTI-Xa, UFH(UnfractionatedHep 0.28 IU/ml (0.3-0.7)
[2024-10-16 06:29] LABS: Basophils # (auto) 0.01 K/uL (0.00-0.20); Basophils % (auto) 0.3 %; Eosinophils # (auto) 0.08 K/uL (0.00-0.50); Eosinophils % (auto) 2.1 %; Hematocrit (blood only) 34.6 % (37.0-47.0); Hemoglobin 11.7 g/dl (12.0-16.0); Immature Granulocytes # (auto) 0.05 K/uL (0.01-0.20); Immature Granulocytes % (auto) 1.3 %; Lymphocytes # (auto) 1.14 K/uL (1.20-3.40); Lymphocytes % (auto) 30.5 %; Mean Corpuscular Hemoglobin 29.5 pg (25.0-34.0); Mean Corpuscular Hgb Conc 33.8 g/dL (32.0-36.0); Mean Corpuscular Volume 87.2 fL (80.0-100.0); Monocytes # (auto) 0.31 K/uL (0.11-0.59); Monocytes % (auto) 8.3 %; Neutrophils # (auto) 2.15 K/uL (1.40-6.50); Neutrophils % (auto) 57.5 %; Platelet Count 208 K/uL (130-400); RDW Coefficient of Variation 13.3 % (11.5-14.5); RDW Standard Deviation 42.1 fL (36.4-46.3); Red Blood Count 3.97 M/uL (4.20-5.40); White Blood Count 3.74 K/ul (4.8-10.8)
[2024-10-16 06:53] LABS: Calcium 7.7 mg/dl (8.6-10.3); Creatinine Clr Calc Pharmacy 275.6 ml/min; Magnesium 1.8 mg/dl (1.7-2.4); Potassium 3.5 mmol/L (3.5-5.1)
[2024-10-16 08:11] LABS: ANTI-Xa, UFH(UnfractionatedHep 0.31 IU/ml (0.3-0.7)
[2024-10-16] MEDS: ASCORBIC ACID 500 MG TAB PO SCH (08:43)
[2024-10-16] MEDS: PRENATAL VITAMIN 1 TAB PO SCH (08:43)
--- NOTE | 2024-10-16 13:39 | Ultrasound Report ---
RIGHT UPPER EXTREMITY VENOUS DOPPLER ULTRASOUND CLINICAL HISTORY: bruising and swelling RUE, r/o clot given hx COMPARISON STUDY: No previous studies for comparison. TECHNIQUE: Sonography of the venous system of the right upper extremity was performed. Sonography of the right upper arm at site of bruising was also performed. FINDINGS: No venous thrombus is identified within the right upper extremity. The internal jugular, diaz bclavian, axillary, brachial, radial, ulnar, cephalic and basilic veins were patent. No fluid collect ion within the distal right forearm at site of bruising was identified. Subtle increased echogenicity is noted. IMPRESSION: 1. No venous thrombus within the right upper extremity. 2. Subtle subcutaneous increased echogenicity within the right upper arm at site of bruising. This fa vors a small contusion. No well-defined fluid collection. ACT 112: Negative or not required by law. Electronically signed by: Sergei Arroyo M.D. 10/16/2024 1:38 PM
[2024-10-16 15:15] VITALS: BP 136/87; PULSE 93; RESP 17; TEMP 98.2; O2SAT 96
[2024-10-16] MEDS: APIXABAN 5 MG TABLET PO SCH (15:58)
--- NOTE | 2024-10-16 16:32 | Discharge Summary ---
Discharge Summary Date of Service October 16, 2024 Principal Dx & Hospital Course #1 = Principal Diagnosis (1) Pulmonary embolism and infarction: (2) pulmonary embolism: (3) Right-sided chest pain: (4) Pleural effusion: Plan This is a 28-year-old female who is otherwise healthy and recently had a spontaneous vaginal delivery 3 and half weeks ago to a healthy baby boy who presented to the ED after experiencing right-sided chest pain and shortness of breath for the past 1.5 days. Right sided pulmonary embolism with infarct Pt presenting with chest pain and SOB D-dimer elevated Chest XRAY noting "faint area of opacification in the right lung lower medial zone and bilateral mild congestive changes (unchanged)..." CTA chest concerning for PE, noting new findings of mild bilateral pleural effusion, axillary lymph node enlargement and bilateral breast skin thickening Doppler US lower extremities unremarkable Echo otherwise normal with EF 60-65% Hypercoagulable workup obtained on admission-pending Treated with IV heparin, transitioned to po Eliquis with first dose of 10mg before discharge PRN pain meds for shoulder pain Pt without increased oxygen requirement Had 2 step completed before discharge and did not require oxygen minimal pleural effusion noted- deferred on lasix as likely related to acute PE and infarct Hematology and Pulmonology followup after discharge- pt anxious for discharge to return home to her . Close PCP followup as well Notes For Next Care Provider As above Medication Changes From Visit As above Admission HPI Per Admitting Provider This is a 28-year-old female who is otherwise healthy and recently had a spontaneous vaginal delivery 3 and half weeks ago to a healthy baby boy who presents to ED after experiencing right-sided chest pain and shortness of breath for the past 1.5 days. Her aunt Sarah is at bedside who also helps elicit history. Of note she had an uncomplicated vaginal delivery. In the initial phase she had a severe headache which was treated with a blood patch in the ED and the symptoms resolved. Up until that point she had been doing well until Tuesday evening when she developed right-sided scapular and mid back pain that was worse with lying flat and taking a deep breath. Symptoms were improved with leaning forward and resting. She did complain of shortness of breath when lying flat as well as dyspnea on exertion. She states that she is back to her prepregnancy weight. She denies any significant lower extremity swelling. She does report approximately 1 week ago having left-sided calf burning that resolved on its own. She also has some associated dizziness with ambulation. She denies any fever, chills, sweats, lightheadedness, presyncope, cough, hemoptysis, nausea, vomiting, abdominal pain, change in her bowel or urinary habits. She reports vaginal bleeding has significantly slowed down. She denies any personal history of clotting disorder but states that her sister had a blood clot in her late 30s as well as her aunts has blood clots. They are pretty certain that her mother has also had blood clots. No known family history of clotting disorder that they are aware of. She never had symptoms like this in the past. In ED patient remained hemodynamically stable. Her CBC, CMP, troponin and urinalysis were unremarkable. Initial CT chest revealed concern for hypoattenuation in the right lower lobe concerning for artifact versus a small filling defect as well as bilateral pleural effusions. She was referred for admission. Admission Exam Per Admitting Provider Constitutional: WD/WN, vitals as above, NAD, sitting up in bed, pleasant, conversing easily Head: Normocephalic, Atraumatic Eyes: PERRL, conjunctivae normal, anicteric sclerae ENMT: external ear and nose normal, oropharynx normal Neck: trachea midline, no thyromegaly normal visual inspection Respiratory: shallow respiratory effort, lungs clear to auscultation, no wheeze, rales, rhonchi. Normal insp/exp effort, no accessory muscle use Cardiovascular: RRR, no murmur, no edema Vessels: no JVD or carotid bruit Chest: normal inspection of chest Abdomen: normal bowel sounds, soft, nontender, no hepatosplenomegaly Musculoskeletal: no cyanosis or clubbing, extremities motor strength 5/5 Skin: no rashes, warm and dry normal turgor Neurologic: PERRL, EOMI, accommodation nl, no face palsy, no dysarthria CN's II-XI intact bilaterally and moves all extremities Psychiatric: A+Ox3, euthymic affect Lymphatic: no cervical or axillary lymphadenopathy : deferred Discharge Exam General: Alert, oriented. No acute distress HEENT: NC/AT CV: RRR Resp: Breath sounds clear bilaterally, some increased effort of breathing initially which improved later Abdomen: Soft, nontender Extremities: No edema in lower extremities bilaterally. RUE with bruising noted Updated Medication List Medication Instructions Recorded Confirmed Type ascorbic acid (vitamin C) 500 mg 500 mg PO DAILY 09/26/24 10/15/24 History tablet (Vitamin C) calcium carbonate 500 mg PO Q OTHER DAY 09/26/24 10/15/24 History magnesium oxide 400 mg PO HS 09/26/24 10/15/24 History vit no.95-ferrous 1 tab PO DAILY 09/26/24 10/15/24 History fumarate 28 mg-folic acid 800 mcg tablet () apixaban 5 mg tablet (Eliquis) See Rx Instructions .Route 10/16/24 Rx .COMPLEX #74 tabs Hospital Stay Data Consultations 10/15/24 08:59 ED Decision to Admit Stat Diagnostic Imagining Performed 10/15/24 07:00 CT angio chest PE protocol Stat 10/15/24 08:32 US venous doppler LE BI Stat 10/16/24 10:00 US venous doppler UE RT Routine Chest X-Ray 10/15/24 05:41 EXAM: XR chest 1V portable CLINICAL HISTORY: Dyspnea. TECHNIQUE: An X-ray image of the chest is obtained in AP projection. COMPARISON: CT angio chest dated 09/26/2024 was reviewed. No prior chest x-rays. FINDINGS: Pulmonary Parenchyma: Bilateral congestive changes. Faint area of haziness/opacification in the right lung lower zone. Can be projectional. Needs clinical correlation and follow-up. Otherwise, no evidence of consolidation or collapse. Obscured costophrenic angles, likely due to overlying soft tissue shadows. Heart and Mediastinum: Heart size and shape are normal. No mediastinal widening or masses. No hilar or mediastinal lymphadenopathy. Bony Thorax: Bony thorax appears intact without fractures or deformities. Soft Tissues: Soft tissues overlying the chest wall are unremarkable. IMPRESSION: 1. Faint area of opacification in the right lung lower medial zone. Can be projectional. Needs clinical correlation and follow-up. 2. Bilateral mild congestive changes (unchanged). Electronically signed by Tc Squires 10-15-2024 06:55 AM Chest CTA 10/15/24 07:00 EXAM: CT angio chest PE protocol CLINICAL HISTORY: PE +dd right-sided chest pain. TECHNIQUE: Contiguous 3.[address] angiographic images of the chest were acquired with the administration of intravenous contrast. Coronal and sagittal reconstructions were obtained. 112 ml opti 320 was administered for post-contrast images. One of these 3D techniques was utilized: Maximum Intensity Pixel (MIP), 3D Reconstructed Images, Volume Rendered Images, Surface Shaded Rendering. One of the following dose reduction techniques were utilized for this exam: Automated exposure control, adjustment of the mA and/or kV according to patient size, and use of iterative reconstruction. COMPARISON: Prior X-ray dated 10/15/2024 for comparison. FINDINGS: Aorta: The thoracic aorta is normal in caliber. No evidence of aneurysm, dissection, or significant atherosclerotic changes. Aortic arch and descending thoracic aorta are unremarkable. Pulmonary Arteries: Hypodense attenuation in few subsegmental branches of pulmonary artery in posterior segment of right lower lobe likely artefactual due to delayed phase acquisition vs small thrombi. Rest of pulmonary arteries are normal in size and opacification. Superior Vena Cava (SVC) and Inferior Vena Cava (IVC): Normal opacification and caliber. No evidence of thrombus or obstruction. Coronary Arteries: Coronary arteries are well-opacified. No significant stenosis or atherosclerotic changes. Mediastinum: No mediastinal mass or lymphadenopathy. Normal appearance of the thymus. Heart: Normal size and morphology of the heart. No pericardial effusion. Lungs: Atelectatic changes and ground glassing in posterior basal segments of bilateral lower lobes. Mild bilateral pleural effusion. Bones: No fractures or lytic/sclerotic lesions of the visualized bony structures. Normal alignment and bone density. Soft Tissues: Mild skin thickening in bilateral breasts. Few enlarged lymph nodes in bilateral axilla largest 2.3 x 2.2 cm on the left. Normal appearance of rest of visualized soft tissues. IMPRESSION: 1. Hypodense attenuation in few subsegmental branches of pulmonary artery in posterior segment of right lower lobe likely artefactual due to delayed phase acquisition however the possibility of small thrombi Cannot be entirely excluded, clinical correlation and follow-up is advised. 2. Atelectatic changes and ground glassing in posterior basal segments of bilateral lower lobes, stable. 3. Mild bilateral pleural effusion, new finding. 4. Mild skin thickening in bilateral breasts, new finding. 5. Few enlarged lymph nodes in bilateral axilla largest 2.3 x 2.2 cm on the left, could be reactive, new finding. Electronically signed by Tc Squires 10-15-2024 08:26 AM Venous Doppler Study 10/15/24 08:32 BILATERAL LOWER EXTREMITY VENOUS DOPPLER CLINICAL HISTORY: ? dvt w/ PE'S COMPARISON STUDY: No previous studies for comparison. TECHNIQUE: Sonography of the deep venous system of the bilateral lower extremities was performed. Compression and augmentation were evaluated. FINDINGS: The bilateral common femoral, superficial femoral and popliteal veins were compressible. Augmentation was normal. Flow was shown within the deep calf vessels. IMPRESSION: No evidence of deep venous thrombus within the bilateral lower extremities. ACT 112: Negative or not required by law. Electronically signed by: Sergei Arroyo M.D. 10/15/2024 10:33 AM Venous Doppler Study 10/16/24 10:00 RIGHT UPPER EXTREMITY VENOUS DOPPLER ULTRASOUND CLINICAL HISTORY: bruising and swelling RUE, r/o clot given hx COMPARISON STUDY: No previous studies for comparison. TECHNIQUE: Sonography of the venous system of the right upper extremity was performed. Sonography of the right upper arm at site of bruising was also performed. FINDINGS: No venous thrombus is identified within the right upper extremity. The internal jugular, subclavian, axillary, brachial, radial, ulnar, cephalic and basilic veins were patent. No fluid collection within the distal right forearm at site of bruising was identified. Subtle increased echogenicity is noted. IMPRESSION: 1. No venous thrombus within the right upper extremity. 2. Subtle subcutaneous increased echogenicity within the right upper arm at site of bruising. This favors a small contusion. No well-defined fluid collection. ACT 112: Negative or not required by law. Electronically signed by: Sergei Arroyo M.D. 10/16/2024 1:38 PM Pending Results Patient Have Any Pending Studies at Discharge: No Discharge Instructions Given to Patient (Per Discharging Provider) Lluvia, You were seen and it was determined that you had blood clots in your lungs. We treated you with IV heparin and transitioned you to Eliquis. Please take it as prescribed at home. You indicated that you will not be . We tested you and determined that you did not need oxygen for home use. You will need close followup with your primary care provider and Hematology after discharge. they will follow up with you about any pending lab tests. Again, please keep close follow up with your primary care provider after discharge. Please do not hesitate to come back to the emergency room if your symptoms worsen or return. It was a pleasure taking care of you while you were here. Total Time Total Time Spent Total Time Spent (In Minutes): 60
== END 2024-10-16 16:41 | disposition home or self-care (01) | DRG 776 ==
LOC: ED 05:30 → EDINP 09:54 → SUATTDRO 09:54 → 2N 13:09